=== PATIENT | female | born 1935 | race Asian ===

== ENCOUNTER 2018-01-29 15:17 | Emergency (ER) | payer MEDICARE, OTHER ==
[~2018-01-29] VITALS: Ht 157.5 cm; Wt 55.5 kg
[~2018-01-29 15:17] MED LIST: ASPI-825 PO; ATOR40TA28 PO; METF500T4 PO; METO-391 PO; VALS80TA2 PO
[2018-01-29 15:43] LABS: GLUCOSE,POINT OF CARE 144 MG/DL (70-110)
[2018-01-29 16:22] VITALS: BP 139/75
[2018-01-29] MEDS: RABIES VAC,PF CHICK-EMB CELL 2.5 UNITS/ML SYRINGE IM ONE (16:51)
== END 2018-01-29 17:12 | disposition home or self-care (01) ==
LOC: EMS 15:18
DX: Z23 Encounter for immunization (principal); E11.9 Type 2 diabetes mellitus without complications; E78.00 Pure hypercholesterolemia, unspecified; I10 Essential (primary) hypertension; Z79.82 Long term (current) use of aspirin
CPT/HCPCS: 82962; 90471; 90675; 99283

== ENCOUNTER 2018-06-29 19:23 | Emergency (ER) | payer MEDICARE, OTHER ==
[~2018-06-29] VITALS: Ht 157.5 cm; Wt 55.5 kg
[~2018-06-29 19:23] MED LIST changes: +METF-444 PO; -METF500T4 PO
[2018-06-29 19:33] LABS: GLUCOSE,POINT OF CARE 137 MG/DL (70-110)
[2018-06-29 20:19] LABS: BASOPHILS % (AUTO) 1.2 % (0.0-2.0); EOSINOPHILS % (AUTO) 3.6 % (1.0-6.0); HEMATOCRIT 34.7 % (36-46); HEMOGLOBIN 11.9 g/dL (12.0-16.0); LYMPHOCYTES % (AUTO) 33.1 % (22.0-44.0); MEAN CORPUSCULAR HEMOGLOBIN 32.2 pg (26.0-34.0); MEAN CORPUSCULAR HGB CONC 34.4 G/dL (31.0-37.0); MEAN CORPUSCULAR VOLUME 94 fL (80-100); MONOCYTES # (AUTO) 0.7 K/uL (0.1-1.0); MONOCYTES % (AUTO) 11.7 % (2.0-9.0); NEUTROPHILS % (AUTO) 50.4 % (40.0-70.0); PLATELET COUNT (AUTO) 140 K/uL (150-450); RED CELL DISTRIBUTION WIDTH 12.8 % (11.5-14.5)
[2018-06-29 20:28] LABS: CREATININE 0.9 mg/dL (0.60-1.30); POTASSIUM 3.8 mmol/L (3.5-5.1)
[2018-06-29 20:34] LABS: ALBUMIN 3.9 g/dL (3.4-5.0); BILIRUBIN,TOTAL 0.3 mg/dL (0.1-1.0); TOTAL PROTEIN, SERUM 7.8 g/dL (6.4-8.2)
[2018-06-29 21:10] LABS: APPEARANCE,URINE CLEAR (CLEAR); BILIRUBIN,URINE NEGATIVE (NEGATIVE); GLUCOSE, URINE (UA) NEGATIVE (NEGATIVE); KETONES,URINE NEGATIVE (NEGATIVE); LEUKOCYTE ESTERASE ,URINE TRACE (NEGATIVE); NITRATE,URINE NEGATIVE (NEGATIVE); OCCULT BLOOD,URINE NEGATIVE (NEGATIVE); PROTEIN,URINE NEGATIVE (NEGATIVE); UROBILINOGEN,URINE 0.2 mg/dL (<=1.0)
[2018-06-29 21:19] LABS: BACTERIA,URINE None Seen /HPF (None Seen); RBC,URINE 0-2 /HPF (0-2)
[2018-06-29 21:20] LABS: SQUAMOUS EPITHELIAL CELL,UR Rare /LPF (None Seen)
[2018-06-29] MEDS ORDERED: IOVERSOL 320 MG/ML 100 ML VIAL ONE (22:35)
[2018-06-29] MEDS ORDERED: SODIUM CHLORIDE 0.9% 0 ML ONE (22:35)
[2018-06-29 22:57] VITALS: BP 109/69
== END 2018-06-29 23:00 | disposition home or self-care (01) ==
LOC: EMS 19:24
DX: F41.9 Anxiety disorder, unspecified (principal); R53.83 Other fatigue; I10 Essential (primary) hypertension; E78.00 Pure hypercholesterolemia, unspecified; E11.9 Type 2 diabetes mellitus without complications; Z79.82 Long term (current) use of aspirin
CPT/HCPCS: 93005; 99285; J7050

== ENCOUNTER 2018-11-10 08:49 | Emergency (ER) | payer MEDICARE, OTHER ==
[~2018-11-10] VITALS: Ht 157.5 cm; Wt 55.5 kg
[2018-11-10 09:04] LABS: GLUCOSE,POINT OF CARE 232 MG/DL (70-110)
[2018-11-10 11:09] VITALS: BP 144/80
== END 2018-11-10 11:32 | disposition home or self-care (01) ==
LOC: EMS 08:50
DX: B02.39 Other herpes zoster eye disease (principal); E11.9 Type 2 diabetes mellitus without complications; E78.00 Pure hypercholesterolemia, unspecified; I10 Essential (primary) hypertension; Z91.013 Allergy to seafood; Z79.84 Long term (current) use of oral hypoglycemic drugs; Z79.82 Long term (current) use of aspirin; Z79.899 Other long term (current) drug therapy

== ENCOUNTER 2019-01-30 08:50 | Emergency (ER) | payer MEDICARE, OTHER ==
[~2019-01-30] VITALS: Ht 149.9 cm; Wt 55.5 kg
[2019-01-30 09:08] LABS: GLUCOSE,POINT OF CARE 125 MG/DL (70-110)
[2019-01-30] MEDS ORDERED: IBUPROFEN 600 MG TABLET PO ONE (11:15)
[2019-01-30 12:30] VITALS: BP 133/69
== END 2019-01-30 12:41 | disposition home or self-care (01) ==
LOC: EMS 08:51
DX: M77.31 Calcaneal spur, right foot (principal); E11.9 Type 2 diabetes mellitus without complications; I10 Essential (primary) hypertension; E78.00 Pure hypercholesterolemia, unspecified; Z79.84 Long term (current) use of oral hypoglycemic drugs; Z79.82 Long term (current) use of aspirin